=== PATIENT | male | born 1955 | race Two or more races ===

== ENCOUNTER 2019-10-07 22:55 | Inpatient (IN) | payer MEDICARE ==
[~2019-10-07] VITALS: Ht 172.7 cm; Wt 97.6 kg
[2019-10-07] MEDS ORDERED: SODIUM CHLORIDE 0.9% 1,000 ML IV ONE (23:00)
[2019-10-07 23:10] LABS: GLUCOSE,POINT OF CARE 219 MG/DL (70-110)
[2019-10-07 23:19] LABS: BASOPHILS % (AUTO) 0.7 % (0.0-2.0); EOSINOPHILS % (AUTO) 2.9 % (1.0-6.0); HEMATOCRIT 47.6 % (41-53); HEMOGLOBIN 15.5 g/dL (13.5-17.5); LYMPHOCYTES # (AUTO) 3.2 K/uL (1.0-4.8); LYMPHOCYTES % (AUTO) 28.8 % (22.0-44.0); MEAN CORPUSCULAR HEMOGLOBIN 27.9 pg (26.0-34.0); MEAN CORPUSCULAR HGB CONC 32.6 G/dL (31.0-37.0); MEAN CORPUSCULAR VOLUME 85 fL (80-100); MONOCYTES # (AUTO) 1.3 K/uL (0.1-1.0); MONOCYTES % (AUTO) 11.5 % (2.0-9.0); NEUTROPHILS # (AUTO) 6.2 K/uL (1.8-7.7); NEUTROPHILS % (AUTO) 56.1 % (40.0-70.0); PLATELET COUNT (AUTO) 232 K/uL (150-450); RED BLOOD CELL COUNT(AUTO) 5.58 MIL/uL (4.50-5.90); RED CELL DISTRIBUTION WIDTH 14.9 % (11.5-14.5)
[2019-10-07 23:42] LABS: ANION GAP 8 mmol/L (8-16); CALCIUM, TOTAL 9.3 mg/dL (8.8-10.5); CARBON DIOXIDE 30 mmol/L (22-29); CHLORIDE 101 mmol/L (98-107); CREATININE 1.79 mg/dL (0.60-1.30); GLOMERULAR FILTR. RATE CALC 38 mL/min (>60); GLUCOSE,RANDOM 193 mg/dL (70-110); POTASSIUM 4.3 mmol/L (3.5-5.1); SODIUM SERUM 139 mmol/L (136-145); UREA NITROGEN, BLOOD 36 mg/dL (7-18)
[2019-10-07] MEDS ORDERED: FERR325T24 PO (23:44)
[2019-10-07 23:46] LABS: SALICYLATE 1.4 mg/dL (2.8-20.0)
[2019-10-07 23:48] LABS: ACETAMINOPHEN < 2 mcg/mL (10-30); ALANINE AMINOTRANSFERASE 33 U/L (12-78); ALKALINE PHOSPHATASE 102 U/L (46-116); ASPARTATE AMINOTRANSFERASE 22 U/L (15-37); BILIRUBIN,TOTAL 0.4 mg/dL (0.1-1.0); PHOSPHORUS 4.4 mg/dL (2.5-4.9); TOTAL PROTEIN, SERUM 8.5 g/dL (6.4-8.2)
[2019-10-07 23:57] LABS: AMPHET/METH SCREEN,URINE NEGATIVE (NEGATIVE); BARBITURATE SCREEN, URINE NEGATIVE (NEGATIVE); BENZODIAZEPINES SCREEN,URINE NEGATIVE (NEGATIVE); CANNABINOID SCREEN,URINE NEGATIVE (NEGATIVE); COCAINE SCREEN,URINE NEGATIVE (NEGATIVE); METHADONE SCREEN, URINE NEGATIVE (NEGATIVE); OPIATE SCREEN,URINE NEGATIVE (NEGATIVE); PHENCYCLIDINE SCREEN,URINE NEGATIVE (NEGATIVE)
[2019-10-07] MEDS ORDERED: GABA-1181 PO (23:58)
[2019-10-07] MEDS ORDERED: VENL-67 PO (23:58)
[2019-10-07] MEDS ORDERED: AMLO10TA7 PO (23:58)
[2019-10-07] MEDS ORDERED: ASPI81TA39 PO (23:58)
[2019-10-07] MEDS ORDERED: BACL10TA PO (23:58)
[2019-10-07] MEDS ORDERED: ATOR40TA28 PO (23:58)
[2019-10-07] MEDS ORDERED: METO-558 PO (23:58)
[2019-10-07] MEDS ORDERED: EMPA10TA PO (23:58)
[2019-10-07] MEDS ORDERED: FURO40 PO (23:58)
[2019-10-07] MEDS ORDERED: CHRO1TAB7 PO (23:58)
[2019-10-07] MEDS ORDERED: TRAZ-252 PO (23:58)
[2019-10-07] MEDS ORDERED: LISI-662 PO (23:58)
[2019-10-07] MEDS ORDERED: VITA-300 PO (23:58)
[2019-10-07] MEDS ORDERED: HUM10VIA SQ (23:58)
[2019-10-07] MEDS ORDERED: DICL50TA9 PO (23:58)
[2019-10-08] MEDS ORDERED: INSULIN LISPRO 100 UNITS/ML SQ PRN (01:45)
[2019-10-08] MEDS ORDERED: SODIUM CHLORIDE 0.9% 2,900 ML IV SCH (01:45)
[2019-10-08] MEDS ORDERED: DEXTROSE 50%-WATER 25 GM/50 ML SYRINGE IVP PRN (01:45)
[2019-10-08] MEDS ORDERED: MORPHINE SULFATE 2 MG/ML SYRINGE IVP PRN (01:45)
[2019-10-08] MEDS ORDERED: FERR-89 PO (02:39)
[2019-10-08] MEDS ORDERED: VENL50TA44 PO (02:39)
[2019-10-08] MEDS ORDERED: ASPI-728 PO (02:39)
[2019-10-08] MEDS ORDERED: HEPARIN SODIUM,PORCINE 5,000 UNITS/ML VIAL SQ SCH (08:00)
[2019-10-08] MEDS ORDERED: FERROUS SULFATE 325 MG EC TABLET PO SCH (08:00)
[2019-10-08] MEDS ORDERED: ASPIRIN 81 MG CHEWABLE TABLET PO SCH (09:00)
[2019-10-08] MEDS ORDERED: ATORVASTATIN CALCIUM 40 MG TABLET PO SCH (09:00)
[2019-10-08] MEDS ORDERED: AmLODIPine BESYLATE 10 MG TABLET PO SCH (09:00)
[2019-10-08] MEDS ORDERED: GABAPENTIN 300 MG CAPSULE PO SCH (09:00)
[2019-10-08] MEDS ORDERED: SODIUM CHLORIDE 0.9% 1,000 ML IV ONE (09:30)
[2019-10-08 10:33] VITALS: BP 169/70
[2019-10-08] MEDS ORDERED: GLIP5TAB11 PO (11:00)
[2019-10-08] MEDS ORDERED: LISINOPRIL 20 MG TABLET PO SCH (11:15)
[2019-10-08 11:16] LABS: GLUCOMETER DEV NAME(LOC) 5N.1; GLUCOSE,POINT OF CARE 200 MG/DL (70-110)
[2019-10-08] MEDS ORDERED: METOPROLOL SUCCINATE 50 MG ER TABLET PO SCH (12:00)
[2019-10-08 12:22] VITALS: BP 159/95
[2019-10-08] MEDS ORDERED: DENTURE ADHESIVE 68 GM CREAM DT PRN (14:00)
[2019-10-08] MEDS ORDERED: INSULIN GLARGINE,HUM.REC.ANLOG 100 UNITS/ML SQ SCH (21:00)
== END 2019-10-08 14:30 | disposition short-term general hospital (02) | DRG 918 ==
LOC: EMS 22:56 → 5S 10-08 00:30
PROVIDERS: ADMIT Internal Medicine; ATTEND Internal Medicine
DX: T43.212A Poisoning by selective serotonin and norepinephrine reuptake inhibitors, intentional self-harm, initial encounter (principal); F33.2 Major depressive disorder, recurrent severe without psychotic features; N17.9 Acute kidney failure, unspecified; I13.0 Hypertensive heart and chronic kidney disease with heart failure and stage 1 through stage 4 chronic kidney disease, or unspecified chronic kidney disease; E78.5 Hyperlipidemia, unspecified; I50.9 Heart failure, unspecified; N18.9 Chronic kidney disease, unspecified; Z95.2 Presence of prosthetic heart valve; Z79.4 Long term (current) use of insulin; E11.65 Type 2 diabetes mellitus with hyperglycemia; E11.22 Type 2 diabetes mellitus with diabetic chronic kidney disease; Y92.89 Other specified places as the place of occurrence of the external cause
CPT/HCPCS: 80337; 83735; 84100; 93005; G0480; G0481; J1644; J1815; J7030; 36415-L1; 36415-TC; 71045-TC